=== PATIENT | male | born 1975 | race Caucasian/White ===

== ENCOUNTER → 2021-05-30 | Outpatient (CLI) | payer OTHER ==
--- NOTE | 2021-05-30 09:38 | RAD ---
EXAMINATION: Right foot radiograph. VIEWS: 3 COMPARISON: None INDICATION:45 years, Male, foot pain, swelling and redness for 6 days. FINDINGS: No acute fracture, dislocation or subluxation. No bone erosion or periosteal reaction. No soft tissue swelling or joint effusion. IMPRESSION: No acute osseous process. Electronically signed by: German Ellis MD (05/30/2021 9:35 AM) [id number]
== END ==
LOC: RAD 09:15
PROVIDERS: ATTEND Physician Assistant
DX: M79.671 Pain in right foot (principal)
CPT/HCPCS: 73630